=== PATIENT | female | born 1975 | race Caucasian/White ===

== ENCOUNTER 2022-04-06 18:52 | Emergency (ER) | payer MEDICAID ==
[2022-04-06] MEDS ORDERED: Sodium Chloride 0.9% 10 ML Syringe FLUSH PRN (18:58)
[2022-04-06] MEDS ORDERED: Sodium Chloride 0.9% 2.5 ML Syringe FLUSH PRN (18:58)
[2022-04-06] MEDS ORDERED: Sodium Chloride 0.9% 1,000 ML IV ONE (19:07)
[2022-04-06 19:37] LABS: CARBON DIOXIDE,CO2 24.8 mmol/L (21.0-32.0); POTASSIUM,K 3.6 mmol/L (3.5-5.1)
[2022-04-06] MEDS ORDERED: Ketorolac 30 MG/ML SDV IVPUSH ONE (21:04)
== END 2022-04-06 21:41 | disposition home or self-care (01) ==
LOC: MW.ED 18:52
DX: N93.8 Other specified abnormal uterine and vaginal bleeding (principal)
CPT/HCPCS: 36415; 76830; 80053; 81001; 81025; 85025; 96361; 96374; 99284; J1885; J3490; J7030